=== PATIENT | female | born 1960 | race Caucasian/White ===

== ENCOUNTER → 2019-10-27 13:20 | Outpatient (BNVA) | payer OTHER, SELFPAY | PROVIDERS: Family Provider Family Medicine; PCP Family Medicine; Visit Provider Nurse Practitioner | DX: N39.0 Urinary tract infection, site not specified (principal); Z71.89 Other specified counseling; R30.0 Dysuria | CPT/HCPCS: 81000; 87086 ==

== ENCOUNTER 2019-11-30 17:21 | Emergency (ER) | payer OTHER, SELFPAY ==
[2019-11-30 18:35] VITALS: BP 154/89; PULSE 67; RESP 18; TEMP 37.4; O2SAT 98; BMI 33.6
[2019-11-30 20:24] LABS: Basophils # 0.1 10^3/uL (0.0-0.1); Basophils % 0.5 %; Eosinophils # 0.1 10^3/uL (0.0-0.8); Eosinophils % 0.5 %; Hematocrit 46.4 % (37.0-47.0); Hemoglobin 15.5 g/dL (11.5-15.3); Lymphocytes # 1.7 10^3/uL (0.8-4.8); Lymphocytes % 12.8 %; Mean Corpuscular HGB Conc 33.4 g/dL (30.0-36.0); Mean Corpuscular Hemoglobin 28.3 pg (28.0-34.0); Mean Corpuscular Volume 84.8 fL (81-99); Mean Platelet Volume 9.5 fL (7.4-10.4); Monocytes # 0.6 10^3/uL (0.2-0.9); Monocytes % 4.3 %; Neutrophils # 10.99 10^3/uL (1.8-7.7); Neutrophils % 81.7 %; Nucleated Red Blood Cells % 0 %; Platelet Count 322 10^3/cmm (130-400); Red Blood Count 5.47 10^6/uL (4.1-5.3); White Blood Count 13.5 10^3/uL (4.0-10.0)
[2019-11-30 20:49] LABS: Alanine Aminotransferase 35 U/L (0-33); Albumin Level 4.8 g/dL (3.5-5.2); Alkaline Phosphatase 63 IU/L (35-105); Anion Gap 16.1 (5-19); Aspartate Amino Transferase 27 U/L (0-32); Blood Urea Nitrogen 13 mg/dL (6-20); Calcium 10.6 mg/dL (8.5-10.5); Carbon Dioxide 33 mmol/L (22-29); Chloride 94 mmol/L (98-107); Globulin 3.3 g/dL (1.3-4.6); Glucose 157 mg/dL (65-115); Lipase 13 U/L (13-60); Osmolality Calculated 293 mOsm/kg (285-295); Potassium 3.1 mmol/L (3.5-5.1); Sodium 140 mmol/L (136-145); Total Bilirubin 0.5 mg/dL (0.15-1.2); Total Protein 8.1 g/dL (6.6-8.7)
== END 2019-12-01 00:05 ==
LOC: ER 17:36
PROVIDERS: Emergency Provider Family Medicine; PCP Family Medicine
DX: Z53.21 Procedure and treatment not carried out due to patient leaving prior to being seen by health care provider (principal)
CPT/HCPCS: 36415; 80053; 83690; 85025; 99281

== ENCOUNTER → 2020-02-03 12:34 | Outpatient (BNVA) | payer OTHER, SELFPAY | PROVIDERS: PCP Family Medicine; Visit Provider Nurse Practitioner Family | DX: N39.0 Urinary tract infection, site not specified (principal) | CPT/HCPCS: 81000; 87086 ==

== ENCOUNTER → 2020-03-03 14:43 | Outpatient (BNVA) | payer OTHER, SELFPAY | PROVIDERS: PCP Family Medicine; Visit Provider Podiatrist Foot & Ankle Surgery | DX: M19.071 Primary osteoarthritis, right ankle and foot (principal); M79.671 Pain in right foot | CPT/HCPCS: 73630 ==

== ENCOUNTER → 2020-10-01 10:43 | Outpatient (BNVA) | payer OTHER, SELFPAY | PROVIDERS: PCP Family Medicine; Visit Provider Registered Nurse Neonatal Intensive Care | DX: N39.0 Urinary tract infection, site not specified (principal) | CPT/HCPCS: 81000 ==

== ENCOUNTER → 2020-10-29 10:31 | Outpatient (BNVA) | payer OTHER, SELFPAY | PROVIDERS: PCP Family Medicine; Visit Provider Registered Nurse Neonatal Intensive Care | DX: N39.0 Urinary tract infection, site not specified (principal) | CPT/HCPCS: 81000 ==

== ENCOUNTER 2020-11-24 09:53 | Outpatient (CLI) | payer OTHER, SELFPAY ==
[2020-11-24 10:03] VITALS: BP 141/96; PULSE 95; RESP 16; TEMP 36.8; O2SAT 90; BMI 32.5
[2020-11-24 12:59] VITALS: BP 141/78; PULSE 62; RESP 18; O2SAT 94
[2020-11-24 13:59] VITALS: BP 141/78; PULSE 63; RESP 18; TEMP 36.9
== END 2020-11-24 09:54 | disposition home or self-care (01) ==
PROVIDERS: PCP Family Medicine; Visit Provider Nurse Practitioner Family
DX: U07.1 COVID-19 (principal)
CPT/HCPCS: 96365

== ENCOUNTER 2023-08-16 20:00 | Outpatient (CLI) | payer OTHER, SELFPAY | END 2023-08-16 20:01 | disposition home or self-care (01) | LOC: SLEEP 08-17 06:05 | PROVIDERS: PCP Family Medicine; Visit Provider Specialist | DX: G47.33 Obstructive sleep apnea (adult) (pediatric) (principal); G47.36 Sleep related hypoventilation in conditions classified elsewhere | CPT/HCPCS: 95810 ==

== ENCOUNTER 2023-11-27 19:52 | Emergency (ER) | payer OTHER, SELFPAY ==
[2023-11-27 19:57] VITALS: BP 148/95; PULSE 69; RESP 16; TEMP 36.8; O2SAT 96
--- NOTE | 2023-11-27 21:00 | W.ED.SKABFB ---
HPI - Skin/Abscess/Foreign Bdy General: Chief complaint: Skin/Abscess/Foreign Body Stated complaint: finger swollen wedding ring stuck Time Seen by Provider: 11/27/23 20:47 History of Present Illness: 63-year-old female comes in today for complaints of tight wedding band to left ring finger. Patient reports that she does not wear her rings too often but she had put them on last night on her left hand and was unable to remove it. Patient appears nontoxic. Patient does have some swelling to her finger. Related Data Home Medications Medication Instructions Recorded Confirmed hydrocodone 10 mg-acetaminophen 1 tab PO Q8H PRN 06/07/19 09/16/22 325 mg tablet morphine 30 mg tablet,extended 15 mg PO BID PRN 09/11/21 09/16/22 release Previous Rx's Medication Instructions Recorded chlorthalidone 25 mg tablet 25 mg PO DAILY #90 tabs 09/06/23 Allergies Allergy/AdvReac Type Severity Reaction Status Date / Time Penicillins Allergy Unknown unknown Verified 11/27/23 20:01 Review of Systems General: Reports: 10 or more systems reviewed and unremarkable except in HPI and below PFSH ED PFSH: Medical History (Updated 11/27/23 @ 21:10 by ABEBE Dubon) Obesity (BMI 30-39.9) Benign essential HTN Pacemaker Syncope Bradycardia Surgical History History of permanent cardiac pacemaker placement H/O oophorectomy H/O foot surgery History of cholecystectomy Family History Father Cancer Diabetes Stroke Mother Cancer Dementia Grandfather Cancer Brother Diabetes Denies family history of CAD (coronary artery disease) Clotting disorder Chronic kidney disease (CKD) Suicide Anesthesia complication Bleeding disorder Lung disease Social History Smoking and tobacco/nicotine status: never used tobacco/nicotine Alcohol intake: never Substance/Drug Use: never Physical Exam Const: COMMON NORMALS: alert HENMT: COMMON NORMALS: normocephalic HEAD & SCALP: normocephalic Neck/C-Spine: COMMON NORMALS: full ROM Resp: COMMON NORMALS: normal respiratory effort Cardio: COMMON NORMALS: regular rate RATE: regular rate GI: COMMON NORMALS: Soft to palpation PALPATION: Yes Soft to palpation Back/Pelvis: COMMON NORMALS: thoracic and lumbar spine normal to inspection Extremity: COMMON NORMALS: normal to inspection Neuro: SENSORIUM/ORIENTATION: Yes alert Skin: COMMON NORMALS: turgor normal GENERAL SKIN EXAM: turgor normal Course Vital Signs: Vital signs: Vital Signs Temperature 98.2 F 11/27/23 19:57 Pulse Rate 69 11/27/23 19:57 Respiratory Rate 16 11/27/23 19:57 Blood Pressure 148/95 11/27/23 19:57 Pulse Oximetry 96 11/27/23 19:57 Oxygen Delivery Me thod Room Air 11/27/23 19:57 MDM - Skin/Abscess/Foreign Bdy Medicial Decision Making 63-year-old female comes in today with complaining on a swollen finger. To the left ring finger patient's wedding band has become stuck. Patient tried multiple avenues to remove it but the finger now has become more swollen which prompted her to come to the ER. Differential diagnosis includes peripheral edema, tourniquet swelling, tight ring on finger. Ring was cut and easily removed from hand. Patient tolerated well. No radiology studies performed this visit Discharge Plan Discharge Patient Disposition: Home Clinical Impression: Tight ring on finger Condition: Stable Prescriptions: No Action hydrocodone-acetaminophen 10-325 mg tablet 1 tab PO Q8H PRN morphine 30 mg tablet extended release 15 mg PO BID PRN chlorthalidone 25 mg tablet 25 mg PO DAILY Qty: 90 0RF Discharge Orders: Discharge ED (Routine); Ordered 11/27/23 Ordered By: Girish Perez Referrals: Osito Metcalf MD [Primary Care Provider] - Discharge Diet: Usual diet Discharge Activity: Increase activity as tolerated Patient Instructions: Finger Sprain (ED) Activity Restrictions/Additional Instructions: Follow-up with primary care for further instructions. Coding Level of Care Code ED Freight Dispatcher for Kavon Myers
[2023-11-27 21:15] VITALS: BP 146/83; PULSE 63; RESP 16; O2SAT 95
[2023-11-27 21:23] VITALS: BP 146/83; PULSE 63; RESP 16; O2SAT 98
== END 2023-11-27 21:24 | disposition home or self-care (01) ==
PROVIDERS: Emergency Provider Nurse Practitioner Family; PCP Family Medicine
DX: S60.445A External constriction of left ring finger, initial encounter (principal); W49.04XA Ring or other jewelry causing external constriction, initial encounter; I10 Essential (primary) hypertension; Z95.0 Presence of cardiac pacemaker
CPT/HCPCS: 99282

== ENCOUNTER 2024-07-28 22:20 | Emergency (ER) | payer OTHER, SELFPAY ==
[2024-07-28 22:26] VITALS: BP 159/71; PULSE 61; RESP 16; TEMP 36.8; O2SAT 99; BMI 31.2
--- NOTE | 2024-07-28 22:39 | XRR_ITS ---
PROCEDURE INFORMATION: Exam: XR Right Hip Exam date and time: 07/28/2024 11:27 PM Age: 63 years old Clinical indication: Injury or trauma; Blunt trauma (contusions or hematomas); Right; Prior surgery; Surgery date: 6+ months; Surgery type: Oophorectomy; EMS arrival for fall at home landing on RT hip. C/O pain and unable to bear weight. ; Additional info: Fall/rt hip pain, can't walk, w/ pelvis TECHNIQUE: Imaging protocol: Radiologic exam of the right hip. Views: 1 view hip with pelvis when performed. COMPARISON: CT lumbar spine wo con* [id number] 11/09/2017 8:45 AM FINDINGS: Bones/joints: Unremarkable. No acute fracture. Soft tissues: Unremarkable. XR/XR hip RT 2-3V wo/w pel* [id number] IMPRESSION: No acute findings.
--- NOTE | 2024-07-28 22:59 | W.ED.FALL ---
HPI - Fall General: Chief Complaint: Fall Stated Complaint: FALL Time Seen by Provider: 07/28/24 22:33 Source: patient Mode of arrival: EMS Limitations: no limitations History of Present Illness: Patient is a 63-year-old female who presents the emergency department complaining of a fall. She arrived by EMS, reportedly slipped and fell down 2 stairs in her bedroom, and this has caused her to have severe pain to her right posterior hip region. Has not been ambulatory since this happened. Noting severe 10/10 pain, has never fractured her hip in the past. No other injuries noted with the fall. Requesting something for pain at this time. MD complaint: fall Onset (ago): minute(s) Fall from: down stairs (#) (2) Fall witnessed: yes, by family Place fall occurred: home Loss of consciousness: None Prolonged down time: no Symptoms prior to fall: none Context: tripped/slipped Location of injury - extremities: Right: thigh (Hip) Severity: severe Severity scale (1-10): 10 Associated symptoms-after fall: Denies abdominal pain, chest pain, headache(s) or neck pain Related Data Home Medications ?Medication ?Instructions ?Recorded ?Confirmed hydrocodone 10 mg-acetaminophen 1 tab PO Q8H PRN 06/07/19 09/16/22 325 mg tablet morphine 30 mg tablet,extended 15 mg PO BID PRN 09/11/21 09/16/22 release Previous Rx's ?Medication ?Instructions ?Recorded chlorthalidone 25 mg tablet See Rx Instructions .Route 12/02/23 .COMPLEX #90 tabs cyclobenzaprine 5 mg tablet 5 mg PO Q8H #10 tabs 07/28/24 ketorolac 10 mg tablet 10 mg PO Q8H PRN pain #15 tabs 07/28/24 Allergies Allergy/AdvReac Type Severity Reaction Status Date / Time Penicillins Allergy Unknown unknown Verified 11/27/23 20:01 Review of Systems General: Reports: 10 or more systems reviewed and unremarkable except in HPI and below Const: Denies: fever(s) or chills Card: Denies: chest pain Resp: Denies: dyspnea or productive cough GI: Denies: abdominal pain, nausea, vomiting or diarrhea : Denies: flank pain Musc: Reports: joint pain (Right hip) and limited range of motion; Denies: neck pain, back pain, extremity pain, extremity swelling, joint swelling, joint redness, joint warmth or muscle weakness Skin/Breast: Denies: rash Neuro: Denies: headache(s), numbness in extremities or weakness in extremities PFSH ED PFSH: Medical History (Updated 07/28/24 @ 23:54 by YINA Rivers) Obesity (BMI 30-39.9) Benign essential HTN Pacemaker Syncope Bradycardia Surgical History History of permanent cardiac pacemaker placement H/O oophorectomy H/O foot surgery History of cholecystectomy Family History Father Cancer Diabetes Stroke Mother Cancer Dementia Grandfather Cancer Brother Diabetes Denies family history of CAD (coronary artery disease) Clotting disorder Chronic kidney disease (CKD) Suicide Anesthesia complication Bleeding disorder Lung disease Social History Smoking and tobacco/nicotine status: never used tobacco/nicotine Alcohol intake: never Substance/Drug Use: never Physical Exam Const: COMMON NORMALS: patient oriented x3, no limitations, healthy appearing, alert and well nourished OTHER: In distress secondary to pain HENMT: COMMON NORMALS: normocephalic and atraumatic HEAD & SCALP: normocephalic and atraumatic; no Hernandez's sign and no raccoon eyes Neck/C-Spine: COMMON NORMALS: full ROM, supple and no meningeal signs Resp: COMMON NORMALS: normal respiratory effort, No use of accessory muscles and clear to auscultation bilaterally AUSCULTATION: clear to auscultation bilaterally Cardio: COMMON NORMALS: regular rate and regular rhythm RATE: regular rate RHYTHM: regular rhythm Extremity: COMMON NORMALS: full ROM, capillary refill normal, no joint enlargement and no clubbing, cyanosis or edema NARRATIVE EXTREMITY EXAM: Reproducible tenderness palpation to right posterolateral hip. Minimal internal rotation noted, severely limited flexion and extension at the right hip secondary to pain. Distal pulses palpable. Neuro: COMMON NORMALS: patient oriented x3, moves all extremities, no focal motor deficits and no sensory deficits noted SENSORIUM/ORIENTATION: Yes alert MENINGEAL SIGNS: Yes no meningeal signs Skin: COMMON NORMALS: no rashes or lesions noted GENERAL SKIN EXAM: no rashes or lesions noted Course Vital Signs: Vital signs: Vital Signs Temperature 98.2 F 07/28/24 22:26 Pulse Rate 61 07/28/24 22:26 Respiratory Rate 16 07/28/24 22:26 Blood Pressure 159/71 07/28/24 22:26 Pulse Oximetry 99 07/28/24 22:26 MDM - Fall Medical Decision Making Patient presented by ambulance status post fall complain of right hip pain. Easily reproducible tenderness to palpation to posterolateral right hip, minimal internal rotation. Neurovascular status was intact. 10 out of 10 pain was reported initially, she was given Dilaudid through an IV. The x-ray did not show any acute fracture or dislocation. Recheck pain now down to a 7/10, and she is given Toradol as well as Norflex through IV. Road test passed prior to discharge home with conservative measures discussed. Lab Data Radiology Impressions Hip/Pelvis X-Ray 07/28/24 22:39 IMPRESSION: No acute findings. All radiology interpretation(s) finalized by discharge Discharge Plan Discharge Patient Disposition: Home Clinical Impression: Fall Qualifiers: Encounter type: initial encounter Qualified Code(s): W19.XXXA - Unspecified fall, initial encounter Contusion of hip, right Qualifiers: Encounter type: initial encounter Qualified Code(s): S70.01XA - Contusion of right hip, initial encounter Condition: Stable Prescriptions: New ketorolac 10 mg tablet 10 mg PO Q8H PRN (Reason: pain) Qty: 15 0RF cyclobenzaprine 5 mg tablet 5 mg PO Q8H Qty: 10 0RF No Action hydrocodone-acetaminophen 10-325 mg tablet 1 tab PO Q8H PRN morphine 30 mg tablet extended release 15 mg PO BID PRN chlorthalidone 25 mg tablet See Rx Instructions .ROUTE .COMPLEX Qty: 90 3RF Dose Instruction: TAKE 1 TABLET BY MOUTH EVERY DAY Rx Instructions: TAKE 1 TABLET BY MOUTH EVERY DAY Discharge Orders: Discharge ED (Routine); Ordered 07/28/24 Ordered By: Kush Li Referrals: Osito Metcalf MD [Primary Care Provider, Family Practice] Patient Instructions: Hip Pain (ED) Activity Restrictions/Additional Instructions: Rest and recovery at home, range of motion exercises and weightbearing as tolerated. Toradol and Tylenol for pain. Cyclobenzaprine before bed for any muscle spasms. Ice/heat. Please follow-up with regular doctor routinely. Print Language: Maori Coding Level of Care Code ED Telecommunications Field Technician for Kavon Myers
[2024-07-28] MEDS: HYDROmorphone 0.5 MG/0.5 ML INJ IVP (23:19)
[2024-07-29] MEDS: orphenadrine 30 mg/mL Inj 2 mL 60 MG IVP (00:03)
[2024-07-29] MEDS: ketorolac 30 mg/mL INJ IVP (00:03)
[2024-07-29 00:07] VITALS: BP 147/87; PULSE 60; RESP 16; O2SAT 96
--- NOTE | 2024-07-29 00:37 | PC.NURSE ---
pt able to stand, pivot and able to walk with minimal difficulties at this time. pt in o obvious distress. provider notified and will d/c
[2024-07-29 00:45] VITALS: BP 147/89; PULSE 61; O2SAT 95
== END 2024-07-29 00:46 | disposition home or self-care (01) ==
PROVIDERS: Emergency Provider Physician Assistant; PCP Family Medicine
DX: S70.01XA Contusion of right hip, initial encounter (principal); I10 Essential (primary) hypertension; W10.9XXA Fall (on) (from) unspecified stairs and steps, initial encounter; Z95.0 Presence of cardiac pacemaker; Z79.899 Other long term (current) drug therapy
CPT/HCPCS: 73502; 96374; 96375; 99284; J1171; J1885; J2360

== ENCOUNTER 2025-01-08 08:22 | Outpatient (CLI) | payer OTHER, SELFPAY ==
--- NOTE | 2025-01-08 08:30 | CT_ITS ---
WS: [id number] CT LUMBAR SPINE TECHNIQUE: Noncontrast CT of the lumbar spine with coronal and sagittal reformatted images. CLINICAL INFORMATION: LUMBOSACRAL RADICULOPATHY DLP: 514.[address] scans at [facility] use at least one of these dose optimization techniques: automated exposure control; mA and/or kV adjustment per patient size (includes targeted exams where dose is matched to clinical indication); or iterative reconstruction. FINDINGS: Mild lumbar curve. No acute compression. Slight anterolisthesis L3 on L4. L1-L2: Mild facet arthropathy. Spinal canal foramina are patent. L2-L3: Mild annular bulging. Slight narrowing of the LEFT subarticular recess. Mild facet arthropathy. Foramen are patent. L3-L4: Slight anterolisthesis. Mild disc bulging with moderate facet arthropathy and ligamentum flavum hypertrophy. Mild central canal stenosis. Small LEFT foraminal protrusion with mild LEFT foraminal narrowing. RIGHT foramen is patent. L4-L5: Mild annular bulging. Impingement of the subarticular recess bilaterally. Moderate facet arthropathy. Mild central canal stenosis. Foramen are patent. L5-S1: Mild annular bulging. Slight contact of the traversing RIGHT greater than LEFT S1 nerve roots. Spinal canal and foramen are patent. Moderate facet arthropathy. Visualized pelvic bony structures: Normal. Paravertebral soft tissues: Normal. CT/CT lumbar spine wo con* [id number] IMPRESSION: 1. Annular bulging L3-L4 and L4-L5 with mild central canal stenosis and narrow ing of the subarticular recess bilaterally. Slight anterolisthesis L3 on L4. 2. Mild LEFT L3-4 foraminal narrowing with a small LEFT foraminal protrusion. 3. Moderate to advanced facet arthropathy L3-L4 and moderate facet arthropathy L4-L5.
== END 2025-01-08 08:23 | disposition home or self-care (01) ==
LOC: RAD 08:24
PROVIDERS: PCP Family Medicine; Visit Provider Nurse Practitioner Family
DX: M54.17 Radiculopathy, lumbosacral region (principal); M51.369 Other intervertebral disc degeneration, lumbar region without mention of lumbar back pain or lower extremity pain; M47.816 Spondylosis without myelopathy or radiculopathy, lumbar region; M48.061 Spinal stenosis, lumbar region without neurogenic claudication; M51.379 Other intervertebral disc degeneration, lumbosacral region without mention of lumbar back pain or lower extremity pain; M47.817 Spondylosis without myelopathy or radiculopathy, lumbosacral region
CPT/HCPCS: 72131